=== PATIENT | female | born 1965 | race Caucasian/White ===

== ENCOUNTER 2019-06-07 05:27 | Inpatient (IN) | payer BC ==
[~2019-06-07] VITALS: Ht 167.6 cm; Wt 127.0 kg
[2019-06-07] MEDS ORDERED: LEVO125T PO (05:52)
[2019-06-07] MEDS ORDERED: AMLO1CAP5 PO (05:53)
[2019-06-07] MEDS ORDERED: AMIT50TA PO (05:53)
[2019-06-07] MEDS ORDERED: LACTATED RINGERS 1,000 ML IV SCH (06:16)
[2019-06-07 06:33] VITALS: BP 135/90
[2019-06-07] MEDS ORDERED: PROPOFOL 100 ML ONE (06:53)
[2019-06-07] MEDS ORDERED: MIDAZOLAM 1 MG/ML, 2ML ONE (06:53)
[2019-06-07] MEDS ORDERED: PROPOFOL 10 MG/ML, 20ML ONE (06:53)
[2019-06-07] MEDS ORDERED: FENTANYL PF 250 MCG/5ML ONE (06:53)
[2019-06-07] MEDS ORDERED: SUCCINYLCHOLINE 20 MG/ML, 10ML ONE (06:55)
[2019-06-07] MEDS ORDERED: GABAPENTIN 300 MG CAPSULE PO ONE (07:00)
[2019-06-07] MEDS ORDERED: ACETAMINOPHEN 500 MG TABLET PO ONE (07:00)
[2019-06-07] MEDS ORDERED: FAMOTIDINE 20 MG TABLET PO ONE (07:00)
[2019-06-07] MEDS ORDERED: OxyconTIN ER 10 MG TAB.ER PO ONE (07:00)
[2019-06-07] MEDS ORDERED: TOBRAMYCIN SULFATE 1.2 GM IMP ONE (07:10)
[2019-06-07] MEDS ORDERED: BUPIVACAINE/PF 0.25% ONE (07:10)
[2019-06-07] MEDS ORDERED: LIDOCAINE/PF 0.5% ,50ML ONE (07:10)
[2019-06-07] MEDS ORDERED: TRIAMCINOLONE ACETONIDE 40 MG/ML, 1ML ONE (07:10)
[2019-06-07] MEDS ORDERED: THROMBIN 5,000 UNIT VIAL TP ONE (07:11)
[2019-06-07] MEDS ORDERED: EPINEPHRINE 1 MG/ML, 1ML ONE (07:11)
[2019-06-07] MEDS ORDERED: VANCOMYCIN 1,000 MG ONE (07:11)
[2019-06-07] MEDS ORDERED: ROCURONIUM 10MG/ML,5ML ONE (07:44)
[2019-06-07] MEDS ORDERED: DEXAMETHASONE 4 MG/ML, 1ML ONE ×3 (07:52)
[2019-06-07] MEDS ORDERED: CEFAZOLIN 1,000 MG ONE ×2 (07:53)
[2019-06-07] MEDS ORDERED: hydrALAzine 20 MG/ML, 1ML IV PRN (09:00)
[2019-06-07] MEDS ORDERED: OXYcodone 5 MG/5 ML ORAL.SOL UDC PO PRN (09:00)
[2019-06-07] MEDS ORDERED: MEPERIDINE/PF 25MG/ML,1ML IVPush PRN (09:00)
[2019-06-07] MEDS ORDERED: ONDANSETRON 2MG/ML, 2ML IV PRN ×2 (09:00→12:00)
[2019-06-07] MEDS ORDERED: HYDROmorphone 2 MG/ML, 1ML IVPush PRN (09:00)
[2019-06-07] MEDS ORDERED: PROMETHAZINE 25 MG/ML, 1ML IV PRN (09:00)
[2019-06-07] MEDS ORDERED: LABETALOL 5MG/ML, 20ML IV PRN (09:00)
[2019-06-07] MEDS ORDERED: ONDANSETRON 2MG/ML, 2ML ONE (09:37)
[2019-06-07] MEDS ORDERED: FENTANYL PF 100 MCG/2ML ONE (10:25)
[2019-06-07] MEDS: FENTANYL PF 100 MCG/2ML IV PRN ×2 (10:28→10:50)
[2019-06-07] MEDS ORDERED: METHOCARBAMOL 1,000 MG in DEXTROSE 5% 100 ML IV ONE (10:30)
[2019-06-07] MEDS ORDERED: BISACODYL 10 MG SUPP PR PRN (12:00)
[2019-06-07] MEDS: METHOCARBAMOL 750 MG TABLET PO SCH ×2 (12:00→18:54)
[2019-06-07] MEDS ORDERED: HYDROcodone/APAP 5/325 TABLET PO PRN (12:00)
[2019-06-07] MEDS ORDERED: MAGNESIUM HYDROXIDE 8%, 30ML UDC PO PRN (12:00)
[2019-06-07] MEDS ORDERED: PROMETHAZINE 25 MG/ML, 1ML IM PRN (12:00)
[2019-06-07] MEDS ORDERED: morphine SULFATE 10 MG/ML, 1ML IV PRN (12:00)
[2019-06-07] MEDS: D5%-0.9% NACL+KCL 20MEQ 1,000 ML IV SCH ×2 (12:15→21:13)
[2019-06-07 12:53] VITALS: BP 136/85
[2019-06-07] MEDS: HYDROcodone/APAP 10/325 MG TABLET PO PRN ×3 (14:00→22:03)
[2019-06-07] MEDS: CEFAZOLIN PMX 1GM/50ML 50 ML IVPB SCH ×2 (15:36→23:59)
[2019-06-07] MEDS: METHOCARBAMOL 750 MG in DEXTROSE 5% 100 ML IV SCH (19:29)
[2019-06-07 19:43] VITALS: BP 123/79
[2019-06-07] MEDS: SENNA/DOCUSATE TABLET PO SCH (21:00)
[2019-06-08] MEDS: METHOCARBAMOL 750 MG TABLET PO SCH (00:12)
[2019-06-08 00:14] VITALS: BP 120/75
[2019-06-08] MEDS: HYDROcodone/APAP 10/325 MG TABLET PO PRN ×2 (02:44→06:45)
[2019-06-08] MEDS: METHOCARBAMOL 750 MG in DEXTROSE 5% 100 ML IV SCH (03:23)
[2019-06-08] MEDS ORDERED: LEVOTHYROXINE 125 MCG TABLET PO SCH (06:00)
[2019-06-08] MEDS: D5%-0.9% NACL+KCL 20MEQ 1,000 ML IV SCH (06:01)
[2019-06-08 07:50] VITALS: BP 126/85
[2019-06-08] MEDS: SENNA/DOCUSATE TABLET PO SCH (08:24)
[2019-06-08] MEDS ORDERED: BENAZEPRIL 10 MG TABLET PO SCH (09:00)
[2019-06-08] MEDS ORDERED: AMLODIPINE 5 MG TABLET PO SCH (09:00)
[2019-06-08] MEDS ORDERED: HYDR-36 PO (10:48)
[2019-06-08] MEDS ORDERED: AMITRIPTYLINE 50 MG TABLET PO SCH (21:00)
== END 2019-06-08 11:39 | disposition home or self-care (01) | DRG 472 ==
LOC: ORIP 05:27 → 4NE 11:32 → DCLOUNGE 06-08 11:21
PROVIDERS: ADMIT Orthopaedic Surgery Orthopaedic Surgery of the Spine; ATTEND Orthopaedic Surgery Orthopaedic Surgery of the Spine
PROC: 0RB30ZZ Excision of Cervical Vertebral Disc, Open Approach (ICD-10-PCS; 2019-06-07)
PROC: 4A11X4G Monitoring of Peripheral Nervous Electrical Activity, Intraoperative, External Approach (ICD-10-PCS; 2019-06-07)
PROC: 0RG10A0 Fusion of Cervical Vertebral Joint with Interbody Fusion Device, Anterior Approach, Anterior Column, Open Approach (ICD-10-PCS; principal; 2019-06-07 07:30)
DX: M50.022 Cervical disc disorder at C5-C6 level with myelopathy (principal); Z68.42 Body mass index [BMI] 45.0-49.9, adult; M50.122 Cervical disc disorder at C5-C6 level with radiculopathy; M48.02 Spinal stenosis, cervical region; E66.01 Morbid (severe) obesity due to excess calories
CPT/HCPCS: 72040; 95938; 95941; C1713; G0378; J0171; J0690; J1100; J2001; J2250; J2405; J2704; J3010; J3260; J3301; J3370; J3490; C1762; J0330; J2800; J3480; J7120